=== PATIENT | female | born 1935 | race Two or more races ===

== ENCOUNTER 2019-06-06 07:46 | Day surgery (SDC) | payer MEDICARE, OTHER ==
[2019-06-06] VITALS (9 sets, daily range): BP systolic 147–184; BP diastolic 76–118
[~2019-06-06] VITALS: Ht 167.6 cm; Wt 83.9 kg
[2019-06-06] MEDS ORDERED: Vigamox Opth Soln 3ml ONE (08:15)
[2019-06-06] MEDS ORDERED: Phenylephrine 10% Opth Soln 5ml ONE (08:15)
[2019-06-06] MEDS ORDERED: Tropicamide 1% Opth 15ml Soln ONE (08:15)
[2019-06-06] MEDS ORDERED: Akten 3.5% 1ml Btl ONE (08:15)
[2019-06-06] MEDS ORDERED: Diclofenac Sod 0.1% Op Soln ONE (08:15)
[2019-06-06] MEDS: Diclofenac Sod 0.1% Op Soln RIGHT EYE SCH ×3 (08:30→08:51)
[2019-06-06] MEDS: Phenylephrine 10% Opth Soln 5ml RIGHT EYE SCH ×3 (08:30→08:51)
[2019-06-06] MEDS: Tropicamide 1% Opth 15ml Soln RIGHT EYE SCH ×3 (08:30→08:51)
[2019-06-06] MEDS: Vigamox Opth Soln 3ml RIGHT EYE SCH ×3 (08:30→08:51)
[2019-06-06] MEDS: Akten 3.5% 1ml Btl RIGHT EYE SCH ×3 (08:30→08:51)
[2019-06-06] MEDS ORDERED: Vit B12 SL (08:36)
[2019-06-06] MEDS ORDERED: Vit B12 PO (08:37)
[2019-06-06] MEDS ORDERED: MULTIVITAMINS1 EAC2 ORAL (08:38)
[2019-06-06] MEDS ORDERED: BISACODYL5 MG ORAL (08:38)
[2019-06-06] MEDS ORDERED: LR 1000ml ONE (10:00)
[2019-06-06] MEDS ORDERED: NS Irrig 1000ml ONE (10:00)
[2019-06-06] MEDS ORDERED: Sterile Water Irrig 1000ml IRRIG ONE (10:00)
[2019-06-06] MEDS ORDERED: Propofol 200mg/20ml IV ONE (10:00)
[2019-06-06] MEDS ORDERED: fentaNYL 100 mcg/2 mL IV ONE (10:00)
--- NOTE | 2019-06-06 10:13 | Pre-Procedure Note/Attestation ---
Pre-Procedure Note/Attestation Complete Prior to Procedure Planned Procedure: right Procedure Narrative: 1- cataract extraction with phaco 2- LRI, right eye 3- Posterio Synechiotomy, right eye Indications for Procedure Pre-Operative Diagnosis: 1- cataract OD 2- Astigmatism OD 3- Posterior synechia Attestation I attest that I discussed the nature of the procedure; its benefits; risks and complications; and alternatives (and the risks and benefits of such alternatives ), prior to the procedure, with the patient (or the patient's legal vaccine customer representative). I attest that, if there was a reasonable possibility of needing a blood transfusion, the patient (or the patient's legal vaccine customer representative) was given the [place] [facility] [employer] [facility] standardized written summary, pursuant to the [place] Blood Safety Act ([place] Health and Safety Code # 1645, as amended). I attest that I re-evaluated the patient just prior to the surgery and that there has been no change in the patient's H&P, except as documented below: Vega Gallegos MD Jun 06, 2019 10:13
[2019-06-06] MEDS ORDERED: LR 1000ml 1,000 ML IVLG SCH (10:59)
--- NOTE | 2019-06-06 10:59 | Anethesia Preoperative Eval ---
Anesthesia Pre-op PMH/ROS General Date of Evaluation: Jun 06, 2019 Time of Evaluation: 10:01 Anesthesiologist: Che ASA Score: ASA 2 Mallampati Score Class I : Soft palate, uvula, fauces, pillars visible Class II: Soft palate, uvula, fauces visible Class III: Soft palate, base of uvula visible Class IV: Only hard plate visible Mallampati Classification: Class III Surgeon: Rosy Diagnosis: R eye cataract Surgical Procedure: Cataract extraction Anesthesia History: none Family History: no anesthesia problems Allergies: Coded Allergies: No Known Allergies (Unverified , 06/05/19) Medications: see eMAR Patient NPO?: Yes Past Medical History Cardiovascular: Denies: HTN, CAD, AR, valve dz, arrhythmia, other Pulmonary: Denies: asthma, COPD, KIYA, other Gastrointestinal/Genitourinary: Reports: GERD, other - constipation Neurologic/Psychiatric: Reports: dementia - mild, agitated noncooperative, depression/anxiety; Denies: CVA, TIA, other Endocrine: Denies: DM, hypothyroidism, steroids, other HEENT: Reports: cataract (L), cataract (R); Denies: glaucoma, TEJON (L), TEJON (R), other Hematology/Immune: Denies: anemia, DVT, bleeding disorder, other Musculoskeletal/Integumentary: Reports: OA; Denies: RA, DJD, DDD, edema, other PMH Narrative: as above PSxH Narrative: ORIF of hip Fx - Gamma nail Anesthesia Pre-op Phys. Exam Physician Exam Last Vital Signs Date Time Temp Pulse Resp B/P (MAP) Pulse Ox O2 Delivery O2 Flow Rate FiO2 06/06/19 08:56 Room Air 06/06/19 08:41 98.5 69 18 168/78 96 Constitutional: NAD Neurologic: other - unable to obtaine Cardiovascular: RRR Respiratory: CTA Gastrointestinal: S/NT/ND Airway Exam Mallampati Score: Class III MO: limited Neck: stiff ROM: limited Teeth: missing Dentures: upper, lower Anesthesia Pre-op A/P Labs see chart Studies Pre-op Studies: EKG - SR Risk Assessment & Plan Assessment: ASA 2 Plan: Ga with LMA non cooperative unable to tolerate procedure under sedation Status Change Before Surgery: Luis Roberts MD Jun 06, 2019 10:59
[2019-06-06] MEDS ORDERED: fentaNYL 100 mcg/2 mL IV PRN (11:00)
[2019-06-06] MEDS ORDERED: EPINEPHrine 1mg/1ml Amp ONE (11:45)
[2019-06-06] MEDS ORDERED: Dexamethasone 4mg/ml vial ONE (11:45)
[2019-06-06] MEDS ORDERED: Lidocaine 1% MPF 10mg/ml 5ml ONE (11:45)
[2019-06-06] MEDS ORDERED: Povidone-Iodine 5% opth solution ONE (11:46)
[2019-06-06] MEDS ORDERED: BSS 500ml btl ONE (11:46)
[2019-06-06] MEDS ORDERED: Sodium Hyaluronate 10 mg/ml 0.85ml ONE (11:46)
[2019-06-06] MEDS ORDERED: BSS 15ml BTL ONE (11:46)
--- NOTE | 2019-06-06 11:46 | Discharge Summary ---
Discharge Summary Discharge Summary Discharge Summary DATE OF ADMISSION: 06/06/2019 DATE OF DISCHARGE: 06/06/2019 REASON FOR HOSPITALIZATION: 1- cataract right eye 2- astigmatism right eye 3- posterior synechia 4- complex cataract SURGERY PERFORMED: CONDITION IN THE HOSPITAL:The patient tolerated the surgery without complications. DISCHARGE CONDITION: The patient was stable at discharge. DISCHARGE MEDICATIONS: 1. Vigamox eye drops one drop q.i.d, OD 2. Prednisolone one drop q.i.d, OD 3. Prolensa one drop QD, OD POSTOPERATIVE ORDERS: The patient has to rest at home. No bending, No lifting, No watching Television tonight. POSTOPERATIVE FOLLOW UP: The patient will be followed in my office tomorrow morning at 7 o'clock. Vega Gallegos MD Jun 06, 2019 11:46
--- NOTE | 2019-06-06 11:47 | Immediate Post-Op Evaluation ---
Immediate Post-Op Evalulation Immediate Post-Op Evalulation Procedure: R eye cataract extraction with IOL Date of Evaluation: Jun 06, 2019 Time of Evaluation: 11:46 IV Fluids: 300 Blood Products: none Estimated Blood Loss: none Urinary Output: none Blood Pressure Systolic: 136 Blood Pressure Diastolic: 78 Pulse Rate: 83 Respiratory Rate: 20 O2 Sat by Pulse Oximetry: 98 Temperature (Fahrenheit): 97.4 Pain Score (1-10): 2 Nausea: No Vomiting: No Complications none Patient Status: reacts, patent, none Hydration Status: adequate Luis Bolton MD Jun 06, 2019 11:47
--- NOTE | 2019-06-06 11:50 | Brief Operative Note ---
Immediate Post Operative Note Operative Note Chief Complaint: Blurry vision difficulty watching TV Pre-op Diagnosis: 1- cataract OD 2- Astigmatism OD 3- Posterior synechia Procedure: 1- Cataract extraction with phaco, right ey 2- Limbal relaxing incision, right eye 3- Posterior synechiotomy right ey 4- complex cataract, right eye Post-op Diagnosis: same as pre-op Surgeon: Vega Gallegos MD Refinery Technician: None Additional Surgeons: None Anesthesiologist: Dr. Bolton Anesthesia: MAC Specimen: none Complications: none Condition: stable Fluids: 400ml Estimated Blood Loss: none Drains: none Implant(s) used?: Yes - Monofocal PC IOl implantedb in the right eye without complication Vega Gallegos MD Jun 06, 2019 11:50
--- NOTE | 2019-06-06 12:23 | 48 Hour Post Anesthesia Eval ---
Post Anesthesia Evaluation Procedure: R eye cataract extraction with IOL Date of Evaluation: Jun 06, 2019 Time of Evaluation: 12:21 Blood Pressure Systolic: 144 0: 68 Pulse Rate: 77 Respiratory Rate: 20 Temperature (Fahrenheit): 97.6 O2 Sat by Pulse Oximetry: 98 Airway: patent Nausea: No Vomiting: No Pain Intensity: 1 Hydration Status: adequate Cardiopulmonary Status: stable Follow-up Care/Observations: n/a Post-Anesthesia Complications: none Follow-up care needed: ready to discharge Luis Bolton MD Jun 06, 2019 12:23
--- NOTE | 2019-06-07 10:30 | Operative Note - Dictated ---
DATE OF OPERATION: 06/06/2019 FACILITY: [facility]. IDENTIFICATION: The patient is an 83-year-old lady. SURGEON: Vega Gallegos M.D. FIRE PROTECTION ENGINEER: None. ANESTHESIOLOGIST: Luis Bolton M.D. ANESTHESIA: Monitored anesthesia care (MAC). PREOPERATIVE DIAGNOSES: 1. Cataract, right eye. 2. Astigmatism. 3. Posterior synechiae. 4. Complex cataract. INDICATION FOR SURGERY: The patient is an 83-year-old lady with a history of arthritis, hypercholesterolemia, Parkinson disease, and dementia. She is not a smoker. She is not a drinker. She is , but she lives alone. She is taking medications including fluocinonide 01:49 ketoconazole 2%, donepezil 5 mg, and 02:01 carbidopa-levodopa 25-100 mg. She is not allergic to any medications. Her family, her son and her daughter are complaining that she cannot see anything, she is walking to hit the wall, she is walking and sometimes she fell because she cannot see objects in front of her. On examination of the right eye, the cornea is clear. Anterior chamber is clean and quiet, but is very shallow. 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 Funduscopy, I could not do funduscopy because there is 3+ nuclear sclerosis and 2+ 04:02 cataract and fundus is not visible. The pupillary reflex is very sluggish because of 04:12. To improve her vision in the right eye, the cataract has to be removed, posterior chamber intraocular lens has to be implanted, and astigmatism has to be addressed as well. INFORMED CONSENT: The nature of the surgery, risks, benefits, alternatives, and potential complications were all explained in detail to the patient's family, her daughter and her son. The potential complications including but not limited to bleeding, infection, posterior capsular rupture, lens subluxation, flat anterior chamber, iris prolapse, uveitis, corneal edema, macular edema, endophthalmitis, retinal detachment, loss of vision, loss of the eye, and were all explained in detail to the patient. The patient's family voiced understanding and accepted all the complications. The alternatives including accommodating lens, multifocal lens, toric lens, and conventional cataract surgery with limbal relaxing incision were all explained in detail to the patient's family, and they voiced understanding. They elected to have conventional cataract surgery to improve vision in the right eye and limbal relaxing incision for astigmatism. Then, her daughter is the advertising account executive of her mother, and she signed the consent form, which is in the chart. DESCRIPTION OF SURGERY AND FINDINGS: Following that, the patient was taken to the operating room in a stable condition. Lidocaine gel, Akten 3.5% were applied to the conjunctiva of the right eye. IV sedation was given by the anesthesiologist, Dr. Bolton. Dr. Bolton put the patient under general anesthesia. After the patient was stable under general anesthesia, the right eye was prepped and draped in sterile fashion for intraocular surgery. Following that, a speculum was placed in the right eye. Under anesthesia, 06:44 was performed, and the cornea was marked for astigmatism as well. Following that, using a trista knife with 500 micron blade, two parallel incisions were made on steep meridian of the cornea to treat the astigmatism. Following that, using a Super Sharp knife, a clear corneal side port was created. A 1% lidocaine without preservative (MPF) was injected into the anterior chamber. Viscoelastic agent, Healon, was injected into the anterior chamber. Following that, using 2.8 mm keratome, a clear corneal temporal peritomy was performed. Following that, viscoelastic agent was injected into the anterior chamber again. Following that, the posterior synechiae of the pupil was released with a Sinskey hook and the pupil was mechanically dilated because it was not dilated enough. Following that, Vision Blue was injected under the viscoelastic agent to stain the anterior capsule of the crystalline lens. Following that, clear fresh viscoelastic agent, Healon was injected into the anterior chamber to dilate the pupil and capsulotomy was performed under the viscoelastic agent in the fashion of capsulorrhexis beautifully. Following that, all viscoelastic agent was removed from the anterior chamber. Following that, hydrodissection and hydrodelineation was performed using balanced salt solution and the nucleus was freed. Following that, clear fresh viscoelastic agent, Healon was injected into the anterior chamber to protect the endothelium of the cornea. Following that, using the phacoemulsification machine in the fashion of horizontal chop, the nucleus was removed, but the nucleus was 08:53 and it was really, really, really hard to remove. Anyway, nucleus was removed in toto, and the posterior capsule was intact. Cortical material was removed using the irrigation aspiration unit, and following that, the capsular bag was filled with viscoelastic agent, Healon. Following that, a +20.0 diopter PCB00 folded IOL with serial #[id number], was injected into the capsular bag. Using a Sinskey hook, the lens was manipulated to the proper position. Following that, all viscoelastic agent was removed from the anterior and posterior part of the lens. Following that, the anterior chamber was filled with balanced salt solution and the wound was hydrated with balanced salt solution. The wound was checked for leakage. There was no leakage. Vigamox eyedrops were applied to the conjunctiva of the right eye. The patient tolerated the surgery without complications. At the end of the surgery, the eye was patched with a clear sterile fenestrated shield. Following that, the patient was transferred to the recovery room. In the recovery room, 125 mg Diamox was given by mouth stat. Postoperative orders and directions were given to the patient. The patient will be discharged home upon stabilization. The patient will be followed in my office tomorrow morning. Vega Gallegos M.D. DR: Ankit JOB#: [id number] CC:
--- NOTE | 2019-06-08 19:30 | Pre-op HX & Phy Repo 2 SIG ---
DATE OF ADMISSION: 06/06/2019 NOTE: "POOR AUDIO QUALITY" PRESURGICAL INTERNAL MEDICINE HISTORY AND PHYSICAL REASON FOR EVALUATION: I was asked by Dr. Vega Gallegos to see this 83-year-old female who is going for elective surgery on the right eye. Please see full Ophthalmology History and Physical by Dr. Vega Gallegos. The patient has nuclear sclerotic cataract in the right eye. The patient was evaluated and chart was reviewed. The patient is a Farsi-speaking 83-year-old female. All information obtained from the daughter who translates at bedside and Dr. Kc's office laboratory. EKG was obtained at [facility]. PAST MEDICAL HISTORY AND REVIEW OF SYSTEMS: Remarkable for history of hypertension, not on any medication. Denies history of heart attack or chest pain. The patient has chronic atrial fibrillation, history of Parkinson disease, and hallucination. No history of respiratory problem, asthma, or bronchitis. No history of stroke or seizures. She has tremors. No history of GI bleeding or heartburn. The patient has no hepatitis, but has history of constipation. No history of thyroid problem or diabetes. No history of renal failure or dysuria. FAMILY HISTORY: The patient's mother at young age at childbirth. Father, unknown. SURGICAL HISTORY: History of a fracture of the hip and replacement and history of left eye cataract recent. ALLERGIES: Not known. PRESENT MEDICATIONS: Dulcolax and vitamin B12 tablets. HABITS: No history of smoke or alcohol habits. No street drugs. PHYSICAL EXAMINATION: GENERAL: The patient is awake. VITAL SIGNS: Blood pressure 168/78, temperature 98.7, heart rate is 69 and regular, O2 saturation 96% on room air. SKIN: Dry, warm, and clear. No rashes. No lymph nodes enlargement. HEENT: Head normocephalic and atraumatic. Ears, clear. Eyes, full description per Dr. Vega Gallegos. Mouth, clear and moist. She wears dentures. NECK: Supple. No jugular venous distention. Carotids artery +2. Trachea midline. LYMPHATICS: Lymph nodes not enlarged. CHEST: Mild kyphosis. LUNGS: Clear to auscultation and percussion. No rales or rhonchi. HEART: Rate regular. Rate 78 per minute. No murmur. No S3, S4. ABDOMEN: Soft. No palpable mass. No rebound. Liver and spleen not enlarged. EXTREMITIES: No edema. No varicose vein. NERVOUS SYSTEM: Tremor parkinsonian. The patient is confused and somewhat agitated. LABORATORY AND DIAGNOSTIC DATA: EKG, atrial fibrillation, chronic, 78 per minute. The patient did not eat or drink from 8 p.m. yesterday. Laboratory work from April from Dr. Kc's office, none remarkable. IMPRESSION: 1. Nuclear sclerotic cataract, right eye. 2. History of hypertension, not treated. 3. Parkinson disease. 4. Agitation. 5. History of constipation. PLAN: Cataract extraction, right eye, with intraocular lens implant per Dr. Vega Gallegos. CONCLUSION: The patient is an 83-year-old female with chronic atrial fibrillation; the patient is on no medication for condition. The patient also has Parkinson's tremor and hallucination; she has no treatment for the condition either. The patient did not eat or drink from 8 p.m. yesterday. The patient's condition optimized for surgery. Thank you very much, Dr. Gallegos, for privilege to participate in presurgical care of this interesting patient. Ben Rice M.D. DR: Ally JOB#: [id number] CC:
== END 2019-06-06 13:00 | disposition home or self-care (01) ==
LOC: SUR 07:46
DX: H25.11 Age-related nuclear cataract, right eye (principal); H52.201 Unspecified astigmatism, right eye; H21.541 Posterior synechiae (iris), right eye; M19.90 Unspecified osteoarthritis, unspecified site; E78.00 Pure hypercholesterolemia, unspecified; G20 Parkinson's disease; F03.90 Unspecified dementia, unspecified severity, without behavioral disturbance, psychotic disturbance, mood disturbance, and anxiety; F32.9 Major depressive disorder, single episode, unspecified; F41.9 Anxiety disorder, unspecified; K21.9 Gastro-esophageal reflux disease without esophagitis
CPT/HCPCS: 66984; 66999; 93005; J0171; J1100; J2704; J3010; J7120; V2632; 94003; 94150